=== PATIENT | male | born 1960 | race Caucasian/White ===

== ENCOUNTER 2016-10-16 16:05 | Inpatient (IN) | payer BC ==
[~2016-10-16] VITALS: Ht 188 cm; Wt 125.5 kg
[~2016-10-16 16:05] MED LIST: ALLOPURINOL100 MG PO; ALPRAZOLAM0.25 M2 PO; ASPIR 8181 M1 PO; AVAPRO150 MG PO; AVAPRO300 MG PO; BUMEX1 MG PO; CALCIUM ACETAT667 MG PO; CARDIZEM CD120 MG PO; CARDIZEM120 MG PO; CARDURA4 MG PO; CEFTIN500 MG PO; CHLORTHALIDONE25 MG PO; CITALOPRAM HBR20 MG PO; CORICIDIN HBP1 EAC5 PO; COZAAR50 MG PO; CYMBALTA30 MG PO; CYMBALTA60 MG PO; DICLOFENAC SODI75 MG PO; ENDOCET 5-3251 EACH PO; EXCEDRIN EXTRA1 EACH PO; EXCEDRIN MIGRA1 EAC3 PO; FISH OIL 1,0001 EA11 PO; FLORASTOR250 MG PO; FUROSEMIDE40 MG PO; HYDROCHLOROTH12.5 M3 PO; HYGROTON25 MG PO; INDOCIN50 MG PO; IRBESARTAN300 MG PO; JANTOVEN2.5 MG PO; JANTOVEN5 MG PO; K-DUR20 MEQ PO; LASIX40 MG PO; LONITEN2.5 MG PO; LOPRESSOR100 M1 PO; MEN'S MULTIVI200 MCG PO; MINOXIDIL2.5 MG PO; NORVASC5 MG PO; OXYCODONE HCL5 MG PO; PANTOPRAZOLE SO40 MG PO; PRADAXA150 MG PO; PRAVACHOL20 MG PO; PRAVACHOL40 MG PO; PRILOSEC OTC20 MG PO; ROCEPHIN2 GM/50 ML IV; ROXICODONE5 MG PO; TAMSULOSIN HCL0.4 MG PO; TYLENOL REGULA325 MG PO; XANAX0.25 MG PO; ZYLOPRIM100 MG PO
[2016-10-16] MEDS ORDERED: BENICAR HCT 401 EACH PO (16:43)
[2016-10-16] MEDS ORDERED: CHLORTHALIDONE25 MG PO (16:44)
[2016-10-16 16:55] LABS: HEMATOCRIT 42.6 % (38.0-50.0); MCH 29.3 PG (29.0-34.0); MCHC 33.6 G/DL (30.0-36.0); MCV 87.3 FL (86-99); MEAN PLAT.VOLUME 9.8 uM^3 (9.0-12.4); PLATELET COUNT 309 K/uL (156-360); RBC DIS.WIDTH-CV 16.6 % (11.8-14.6); RBC DIS.WIDTH-SD 52.9 % (39-53); RED BLOOD COUNT 4.88 M/uL (4.00-5.50); WHITE BLOOD COUNT 10.4 K/uL (4.1-10.2)
[2016-10-16 17:04] LABS: CHLORIDE 105 mEq/L (99-109); POTASSIUM 4.6 mEq/L (3.7-5.4)
[2016-10-16 17:05] LABS: MAGNESIUM 1.8 mg/dL (1.3-2.7); SODIUM 142 mEq/L (136-147)
[2016-10-16 17:06] LABS: GLUCOSE 113 mg/dL (70-99)
[2016-10-16 17:08] LABS: ANION GAP 10 MEQ/L (2-14)
[2016-10-16 17:10] LABS: GFR ESTIMATE (CALCULATED) > 59 mL/min/
[2016-10-16 17:11] LABS: UREA NITROGEN (BUN) 17 mg/dL (9-23)
[2016-10-16 17:17] LABS: TROP-I INTERPRETATION NEGATIVE; TROPONIN-I 0.02 ng/mL (0.0-0.30)
[2016-10-16] MEDS ORDERED: DULOXETINE HCL60 MG PO (19:05)
[2016-10-16] MEDS ORDERED: LO-DOSE ASPIRIN81 M2 PO (19:08)
[2016-10-16] MEDS ORDERED: METOPROLOL TAR100 MG PO (19:09)
[2016-10-16] MEDS ORDERED: BUMETANIDE1 MG PO (19:10)
[2016-10-16 23:44] LABS: TROP-I INTERPRETATION NEGATIVE; TROPONIN-I 0.02 ng/mL (0.0-0.30)
[2016-10-17 02:11] VITALS: BP 162/102
[2016-10-17 05:24] VITALS: BP 168/100
[2016-10-17 06:02] LABS: TROP-I INTERPRETATION NEGATIVE; TROPONIN-I 0.02 ng/mL (0.0-0.30)
[2016-10-17 06:28] LABS: ANION GAP 12 MEQ/L (2-14); CHLORIDE 101 MEQ/L (99-109); GFR ESTIMATE (CALCULATED) 56 mL/min/; GLUCOSE 102 mg/dL (70-99); SAMPLE HEMOLYSIS CHECK 0; SAMPLE ICTERIC CHECK 0; SAMPLE LIPEMIA CHECK 0; SODIUM 141 MEQ/L (136-147); UREA NITROGEN (BUN) 18 mg/dL (9-23)
[2016-10-17 06:41] LABS: POTASSIUM 3.5 MEQ/L (3.7-5.4)
[2016-10-17 07:45] VITALS: BP 189/123
[2016-10-17 11:40] VITALS: BP 172/97
[2016-10-17 15:47] VITALS: BP 171/81
[2016-10-17 19:35] VITALS: BP 152/98
[2016-10-18] VITALS (7 sets, daily range): BP systolic 120–158; BP diastolic 81–98
[2016-10-18 07:01] LABS: HEMATOCRIT 43.7 % (38.0-50.0); MCH 28.6 PG (29.0-34.0); MCV 86.9 FL (86-99); MEAN PLAT.VOLUME 9.7 uM^3 (9.0-12.4); PLATELET COUNT 293 K/uL (156-360); RBC DIS.WIDTH-SD 53.9 % (39-53); RED BLOOD COUNT 5.03 M/uL (4.00-5.50); WHITE BLOOD COUNT 8.1 K/uL (4.1-10.2)
[2016-10-18 07:23] LABS: ANION GAP 9 MEQ/L (2-14); CHLORIDE 103 MEQ/L (99-109); GFR ESTIMATE (CALCULATED) > 59 mL/min/; GLUCOSE 105 mg/dL (70-99); SAMPLE HEMOLYSIS CHECK 0; SAMPLE ICTERIC CHECK 0; SAMPLE LIPEMIA CHECK 0; SODIUM 140 MEQ/L (136-147); UREA NITROGEN (BUN) 22 mg/dL (9-23)
[2016-10-19 03:45] VITALS: BP 138/82
[2016-10-19 06:14] LABS: MCH 28.8 PG (29.0-34.0); MCHC 32.9 G/DL (30.0-36.0); MCV 87.7 FL (86-99); MEAN PLAT.VOLUME 10.1 uM^3 (9.0-12.4); PLATELET COUNT 289 K/uL (156-360); RBC DIS.WIDTH-CV 16.6 % (11.8-14.6); RBC DIS.WIDTH-SD 53.4 % (39-53); RED BLOOD COUNT 4.79 M/uL (4.00-5.50); WHITE BLOOD COUNT 10.1 K/uL (4.1-10.2)
[2016-10-19 06:41] LABS: ANION GAP 9 MEQ/L (2-14); CHLORIDE 102 MEQ/L (99-109); GFR ESTIMATE (CALCULATED) 45 mL/min/; GLUCOSE 100 mg/dL (70-99); POTASSIUM 3.7 MEQ/L (3.7-5.4); SAMPLE HEMOLYSIS CHECK 0; SAMPLE ICTERIC CHECK 0; SAMPLE LIPEMIA CHECK 0; SODIUM 140 MEQ/L (136-147); UREA NITROGEN (BUN) 27 mg/dL (9-23)
[2016-10-19 08:02] VITALS: BP 145/92
[2016-10-19] MEDS ORDERED: ALPRAZOLAM0.25 M2 PO (08:38)
[2016-10-19] MEDS ORDERED: LOSARTAN POTAS100 MG PO (08:38)
[2016-10-19] MEDS ORDERED: AMLODIPINE BESY10 MG PO (08:38)
[2016-10-21 12:43] LABS: CATU Urine Volume 1500 mL/24 h (()); Calculated Total (E and NE) 94 mcg/24 h (26-121); Dopamine, 24 hr Urine 178 mcg/24 h (52-480); Norepinephrine, 24 hr Ur 94 mcg/24 h (15-100)
[2016-10-21 19:06] LABS: MNPH Specimen Volume 1500 mL (())
== END 2016-10-19 11:38 | disposition home or self-care (01) | DRG 264 ==
LOC: EME 16:05 → EDOF 21:23 → 4SOUTH 21:23
PROVIDERS: Family Medicine; Hospitalist; Internal Medicine; Physician Assistant
PROC: 0HBNXZZ Excision of Left Foot Skin, External Approach (ICD-10-PCS; principal; 2016-10-17)
DX: I16.0 Hypertensive urgency (principal); I50.32 Chronic diastolic (congestive) heart failure; I13.0 Hypertensive heart and chronic kidney disease with heart failure and stage 1 through stage 4 chronic kidney disease, or unspecified chronic kidney disease; N18.3 Chronic kidney disease, stage 3 (moderate); L84 Corns and callosities; I48.0 Paroxysmal atrial fibrillation; E87.6 Hypokalemia; G47.33 Obstructive sleep apnea (adult) (pediatric); F32.9 Major depressive disorder, single episode, unspecified; Z99.81 Dependence on supplemental oxygen; E66.01 Morbid (severe) obesity due to excess calories; Z68.35 Body mass index [BMI] 35.0-35.9, adult; M10.9 Gout, unspecified; K21.9 Gastro-esophageal reflux disease without esophagitis; Z86.73 Personal history of transient ischemic attack (TIA), and cerebral infarction without residual deficits; Z79.01 Long term (current) use of anticoagulants
CPT/HCPCS: 71020; 74185; 80048; 80069; 82088 90; 82384 90; 82530 90; 83735; 83835 90; 83880; 84244 90; 84484; 85027; 93005; 99281; 99285; J0360; J1940

== ENCOUNTER 2017-06-05 01:06 | Inpatient (IN) | payer BC ==
[~2017-06-05] VITALS: Ht 188 cm; Wt 122.6 kg
[~2017-06-05 01:06] MED LIST changes: +AMLODIPINE BESY10 MG PO; +BENICAR HCT 401 EACH PO; +BUMETANIDE1 MG PO; +DULOXETINE HCL60 MG PO; +LO-DOSE ASPIRIN81 M2 PO; +LOSARTAN POTAS100 MG PO; +METOPROLOL TAR100 MG PO
[2017-06-05 01:57] LABS: BASOPHIL COUNT 0.1 K/uL (0-0.1); EOSINOPHIL (%) 2.1 % (0-5); EOSINOPHIL COUNT 0.4 K/uL (0-0.3); HEMATOCRIT 43.4 % (38.0-50.0); IMMATURE GRANULOCYTE (%) 0.3 % (0.0-0.7); IMMATURE GRANULOCYTE COUNT 0.1 K/uL; INSTRUMENT ABS NEUTROPHIL CT 13.9 K/uL; LYMPHOCYTE COUNT 1.5 K/uL (1.0-2.8); MCH 30.2 PG (29.0-34.0); MCHC 33.6 G/DL (30.0-36.0); MCV 89.9 FL (86-99); MEAN PLAT.VOLUME 9.8 uM^3 (9.0-12.4); MONOCYTE (%) 10.3 % (3-12); MONOCYTE COUNT 1.8 K/uL (0-0.8); NEUTROPHIL (%) 78.5 % (45-76); NEUTROPHIL COUNT 13.9 K/uL (1.8-6.4); PLATELET COUNT 302 K/uL (156-360); RBC DIS.WIDTH-CV 14.1 % (11.8-14.6); RBC DIS.WIDTH-SD 47.2 % (39-53); RED BLOOD COUNT 4.83 M/uL (4.00-5.50); WHITE BLOOD COUNT 17.7 K/uL (4.1-10.2)
[2017-06-05 02:05] LABS: CHLORIDE 104 mEq/L (99-109); POTASSIUM 3.5 mEq/L (3.7-5.4)
[2017-06-05 02:06] LABS: SODIUM 139 mEq/L (136-147)
[2017-06-05 02:07] LABS: GLUCOSE 111 mg/dL (70-99)
[2017-06-05 02:09] LABS: ANION GAP 13 MEQ/L (2-14)
[2017-06-05 02:11] LABS: GFR ESTIMATE (CALCULATED) 56 mL/min/
[2017-06-05 02:12] LABS: UREA NITROGEN (BUN) 18 mg/dL (9-23)
[2017-06-05 02:18] LABS: TROP-I INTERPRETATION NEGATIVE; TROPONIN-I 0.05 ng/mL (0.0-0.30)
[2017-06-05] MEDS ORDERED: XARELTO20 MG PO (04:48)
[2017-06-05] MEDS ORDERED: FLUOXETINE HCL60 MG PO (04:49)
[2017-06-05] MEDS ORDERED: ROXICODONE5 MG PO (04:49)
[2017-06-05 05:30] VITALS: BP 180/103
[2017-06-05 07:14] VITALS: BP 135/99
[2017-06-05 07:18] LABS: BASOPHIL COUNT 0.1 K/uL (0-0.1); EOSINOPHIL (%) 1.6 % (0-5); EOSINOPHIL COUNT 0.3 K/uL (0-0.3); HEMATOCRIT 46.3 % (38.0-50.0); IMMATURE GRANULOCYTE (%) 0.5 % (0.0-0.7); IMMATURE GRANULOCYTE COUNT 0.1 K/uL; INSTRUMENT ABS NEUTROPHIL CT 15.9 K/uL; LYMPHOCYTE COUNT 1.5 K/uL (1.0-2.8); MCH 29.6 PG (29.0-34.0); MCHC 32.8 G/DL (30.0-36.0); MCV 90.1 FL (86-99); MEAN PLAT.VOLUME 9.9 uM^3 (9.0-12.4); MONOCYTE (%) 10.6 % (3-12); MONOCYTE COUNT 2.1 K/uL (0-0.8); NEUTROPHIL (%) 79.4 % (45-76); NEUTROPHIL COUNT 15.9 K/uL (1.8-6.4); PLATELET COUNT 326 K/uL (156-360); RBC DIS.WIDTH-CV 14.1 % (11.8-14.6); RED BLOOD COUNT 5.14 M/uL (4.00-5.50)
[2017-06-05 08:08] LABS: INTERNAL CONTROL VALID? YES
[2017-06-05 10:01] LABS: TROP-I INTERPRETATION NEGATIVE; TROPONIN-I 0.04 ng/mL (0.0-0.30)
[2017-06-05 11:42] VITALS: BP 143/98
[2017-06-05 12:41] LABS: ADD MIUA? YES; BILIRUBIN NEGATIVE; BLOOD SMALL; COLOR YELLOW ((YELLOW)); GLUCOSE (STRIP) NEGATIVE; KETONES NEGATIVE; LEUKOCYTES NEGATIVE; NITRITE NEGATIVE; PROTEIN (STRIP) >=500; SPECIFIC GRAVITY 1.016 (1.000-1.030); UROBILINOGEN 0.2 MG/DL (0.2-1.0)
[2017-06-05 12:58] LABS: BACTERIA NONE SEEN /HPF; EPITHELIAL CELLS NONE SEEN /HPF; MUCUS TRACE /LPF; RED BLOOD CELLS 0-5 /HPF (0-5); UCUL ADDED? NO; WHITE BLOOD CELLS 0-5 /HPF (0-5)
[2017-06-05 15:23] LABS: TROP-I INTERPRETATION NEGATIVE; TROPONIN-I 0.03 ng/mL (0.0-0.30)
[2017-06-05 16:30] VITALS: BP 144/93
[2017-06-05 20:28] VITALS: BP 168/87
[2017-06-05 21:03] LABS: TROP-I INTERPRETATION NEGATIVE; TROPONIN-I 0.03 ng/mL (0.0-0.30)
[2017-06-05 23:37] VITALS: BP 147/85
[2017-06-06 04:32] LABS: BASOPHIL COUNT 0.1 K/uL (0-0.1); EOSINOPHIL COUNT 0.3 K/uL (0-0.3); HEMATOCRIT 42.1 % (38.0-50.0); IMMATURE GRANULOCYTE (%) 0.5 % (0.0-0.7); IMMATURE GRANULOCYTE COUNT 0.1 K/uL; INSTRUMENT ABS NEUTROPHIL CT 11.1 K/uL; LYMPHOCYTE COUNT 1.4 K/uL (1.0-2.8); MCH 30.3 PG (29.0-34.0); MCHC 33.7 G/DL (30.0-36.0); MCV 89.8 FL (86-99); MEAN PLAT.VOLUME 9.7 uM^3 (9.0-12.4); MONOCYTE (%) 11.6 % (3-12); MONOCYTE COUNT 1.7 K/uL (0-0.8); NEUTROPHIL (%) 75.9 % (45-76); NEUTROPHIL COUNT 11.1 K/uL (1.8-6.4); PLATELET COUNT 308 K/uL (156-360); RBC DIS.WIDTH-SD 46.4 % (39-53); RED BLOOD COUNT 4.69 M/uL (4.00-5.50); WHITE BLOOD COUNT 14.6 K/uL (4.1-10.2)
[2017-06-06 04:59] VITALS: BP 144/79
[2017-06-06 05:04] LABS: CHLORIDE 101 mEq/L (99-109); POTASSIUM 3.7 mEq/L (3.7-5.4); SODIUM 139 mEq/L (136-147)
[2017-06-06 05:07] LABS: ANION GAP 13 MEQ/L (2-14)
[2017-06-06 05:08] LABS: TOTAL BILIRUBIN 0.8 mg/dL (0.0-1.0)
[2017-06-06 05:10] LABS: GFR ESTIMATE (CALCULATED) 56 mL/min/
[2017-06-06 07:00] VITALS: BP 141/95
[2017-06-06] MEDS ORDERED: CEFTIN500 MG PO (10:43)
[2017-06-06] MEDS ORDERED: ZITHROMAX500 MG PO (10:43)
[2017-06-06] MEDS ORDERED: DULOXETINE HCL60 MG PO (10:43)
[2017-06-06 12:30] VITALS: BP 119/85
== END 2017-06-06 14:56 | disposition home or self-care (01) | DRG 193 ==
LOC: EME 01:06 → EDOF 03:12 → 4EAST 03:12 → ENRESERV 03:13 → 4EAST 05:21
PROVIDERS: Emergency Medicine; Hospitalist; Internal Medicine
DX: J15.9 Unspecified bacterial pneumonia (principal); I13.0 Hypertensive heart and chronic kidney disease with heart failure and stage 1 through stage 4 chronic kidney disease, or unspecified chronic kidney disease; I50.33 Acute on chronic diastolic (congestive) heart failure; N18.3 Chronic kidney disease, stage 3 (moderate); I48.0 Paroxysmal atrial fibrillation; E87.6 Hypokalemia; I71.2 Thoracic aortic aneurysm, without rupture; G43.909 Migraine, unspecified, not intractable, without status migrainosus; G47.33 Obstructive sleep apnea (adult) (pediatric); K21.9 Gastro-esophageal reflux disease without esophagitis; M10.9 Gout, unspecified; G89.29 Other chronic pain; F32.9 Major depressive disorder, single episode, unspecified; F41.9 Anxiety disorder, unspecified; E66.9 Obesity, unspecified; Z68.34 Body mass index [BMI] 34.0-34.9, adult; Z82.3 Family history of stroke; Z82.49 Family history of ischemic heart disease and other diseases of the circulatory system; Z86.73 Personal history of transient ischemic attack (TIA), and cerebral infarction without residual deficits; Z91.19 Patient's noncompliance with other medical treatment and regimen
CPT/HCPCS: 71020; 80048; 80053; 81003; 82040; 83605; 83880; 84484; 85025; 85025 91; 87040; 87070; 87205; 87449; 87502; 90686; 93005; 93306; 99202; 99281; 99285; J0295; J0456; J0696; J1940; J2405; J7050